=== PATIENT | female | born 2000 | race Caucasian/White ===

== ENCOUNTER 2018-08-28 18:16 | Emergency (ER) | payer OTHER ==
[2018-08-28] MEDS ORDERED: LIDOCAINE 2% VISCOUS SOLN 20 ML UDCUP PO ONE (19:22)
[2018-08-28] MEDS ORDERED: MAG HYDROX/AL HYDROX/SIMETH SUSP 30 ML UDCUP PO ONE (19:22)
[2018-08-28] MEDS ORDERED: METOCLOPRAMIDE HCL ORAL SOLN 10 MG/10 ML UDCUP PO ONE (19:22)
--- NOTE | 2018-08-28 19:27 | ER Document Report ---
ED Medical Screen (RME) - General Chief Complaint: Chest Pain Stated Complaint: CHEST PAIN Time Seen by Provider: 08/28/18 19:18 Mode of Arrival: Ambulatory Information source: Patient Notes: 18-year-old female presented to ED for complaint of upper chest pain since last night. She states she is never had pain like this in the past. She is 22 weeks 1 para 0. She does have a history of GERD and asthma. Patient is alert and oriented respirations regular and unlabored speaking in full sentences walks with even steady gait. I have greeted and performed a rapid initial assessment of this patient. A comprehensive ED assessment and evaluation of the patient, analysis of test results and completion of medical decision making process will be conducted by an additional ED providers. Dictation of this chart was performed using voice recognition software; therefore, there may be some unintended grammatical errors. TRAVEL OUTSIDE OF THE [place] IN LAST 30 DAYS: No - Related Data Allergies/Adverse Reactions: bee sting Allergy (Uncoded 08/28/18 18:48) Physical Exam - Vital signs Vitals: Temp Pulse Resp BP Pulse Ox 98.2 F 79 18 135/62 H 100 08/28/18 18:56 08/28/18 18:56 08/28/18 18:56 08/28/18 18:56 08/28/18 18:56 Course - Vital Signs Vital signs: Temp Pulse Resp BP Pulse Ox 98.2 F 79 18 135/62 H 100 08/28/18 18:56 08/28/18 18:56 08/28/18 18:56 08/28/18 18:56 08/28/18 18:56
--- NOTE | 2018-08-28 20:00 | EKG REPORT ---
SEVERITY:- BORDERLINE ECG - SINUS RHYTHM BORDERLINE T ABNORMALITIES, ANTERIOR LEADS : Confirmed by: Kandice Marcos MD 28-Aug-2018 19:59:59
[2018-08-28 20:14] LABS: APPEARANCE,URINE CLOUDY; BILIRUBIN,URINE NEGATIVE (NEGATIVE); COLOR,URINE YELLOW; GLUCOSE, URINE NEGATIVE (NEGATIVE); KETONES,URINE NEGATIVE (NEGATIVE); LEUKOCYTE ESTERASE,URINE SMALL (NEGATIVE); NITRITE,URINE POSITIVE (NEGATIVE); PROTEIN,URINE NEGATIVE (NEGATIVE); URINE SPECIFIC GRAVITY 1.011
--- NOTE | 2018-08-28 20:34 | RADIOLOGY REPORT (SQ) ---
EXAM DESCRIPTION: XR CHEST 2 VIEWS COMPLETED DATE/TME: 08/28/2018 19:22 CLINICAL HISTORY: 18 years Female chest pain COMPARISON: None. FINDINGS: The cardiomediastinal silhouette appears unremarkable. No consolidating infiltrates or pleural effusions. No pneumothorax. IMPRESSION: No acute abnormality is identified.
[2018-08-28 21:02] LABS: ABSOLUTE EOSINOPHILS # (AUTO) 0.1 10^3/uL (0.0-0.6); ABSOLUTE LYMPHOCYTES (AUTO) 2.2 10^3/uL (0.5-4.7); ABSOLUTE MONOCYTES (AUTO) 0.8 10^3/uL (0.1-1.4); ABSOLUTE NEUT (AUTO) 8.6 10^3/uL (1.7-8.2); BASOPHILS % (AUTO) 0.3 % (0-2); EOSINOPHILS % (AUTO) 1.1 % (0-6); HEMATOCRIT 33.8 % (36.0-47.0); HEMOGLOBIN 11.2 g/dL (12.0-15.5); LYMPHOCYTES % (AUTO) 19.1 % (13-45); MEAN CORPUSCULAR HEMOGLOBIN 29.4 pg (27.0-33.4); MEAN CORPUSCULAR VOLUME 89 fl (80-97); MONOCYTES % (AUTO) 6.6 % (3-13); PLATELET COUNT 246 10^3/uL (150-450); RED BLOOD COUNT 3.79 10^6/uL (3.72-5.28); SEGMENTED NEUTROPHILS % (AUTO) 72.9 % (42-78); TOTAL CELLS COUNTED % (AUTO) 100 %; WHITE BLOOD COUNT 11.7 10^3/uL (4.0-10.5)
[2018-08-28 21:19] LABS: ALANINE AMINOTRANSFERASE 25 U/L (9-52); ALBUMIN 4.2 g/dL (3.5-5.0); ALKALINE PHOSPHATASE 58 U/L (38-126); ANION GAP 8 (5-19); ASPARTATE AMINO TRANSFERASE 26 U/L (14-36); BILIRUBIN,DIRECT 0.2 mg/dL (0.0-0.4); BILIRUBIN,TOTAL 0.3 mg/dL (0.2-1.3); BLOOD UREA NITROGEN 7 mg/dL (7-20); CALCIUM 9.9 mg/dL (8.4-10.2); CARBON DIOXIDE 26 mmol/L (22-30); CHLORIDE 104 mmol/L (98-107); LIPASE 48.9 U/L (23-300); POTASSIUM 4.5 mmol/L (3.6-5.0); SODIUM 137.8 mmol/L (137-145); TOTAL PROTEIN 7.1 g/dL (6.3-8.2)
[2018-08-28 21:34] LABS: GLUCOSE 61 mg/dL (75-110)
[2018-08-28 21:36] LABS: CREATINE KINASE MB < 0.22 ng/mL (<4.55); TROPONIN I < 0.012 ng/mL
--- NOTE | 2018-08-28 22:24 | ER Document Report ---
ED General - General Chief Complaint: Chest Pain Stated Complaint: CHEST PAIN Time Seen by Provider: 08/28/18 19:18 Mode of Arrival: Ambulatory Notes: 18-year-old female to emergency department chief complaint of chest pain. Patient is 22 weeks . Began having chest pain earlier today. Hurts when she takes a deep breath. Nothing seems to make it better. No significant shortness of breath chest pain with deep inspiration. Denies any fever, chills, sweats. No leg swelling. No prior history of DVT or PE. No other major issues at this time. TRAVEL OUTSIDE OF THE [place] IN LAST 30 DAYS: No - HPI Onset: Just prior to arrival Onset/Duration: Sudden Quality of pain: Sharp Severity: Moderate Pain Level: 3 Exacerbated by: Deep breathing - Related Data Allergies/Adverse Reactions: bee sting Allergy (Uncoded 08/28/18 18:48) Past Medical History - General Information source: Patient - Social History Smoking Status: Never Smoker Chew tobacco use (# tins/day): No Frequency of alcohol use: None Drug Abuse: None Family History: Reviewed & Not Pertinent Patient has suicidal ideation: No Patient has homicidal ideation: No - Medical History Medical History: Negative - Past Medical History Cardiac Medical History: Reports: None Renal/ Medical History: Denies: Hx Peritoneal Dialysis GI Medical History: Reports: Hx Gastroesophageal Reflux Disease Past Surgical History: Reports: Hx Oral Surgery - wisdom teeth Review of Systems - Review of Systems Notes: Constitutional: denies: Chills, Diaphoresis, Fever, Malaise, Weakness EENT: denies: Eye discharge, Blurred vision, Tearing, Double vision, Nose congestion, Nose discharge, Throat swelling, Mouth pain Cardiovascular: denies: Palpitations, Heart racing, Orthopnea, Dyspnea,+ Chest pain Respiratory: denies: Cough, Hurts to breathe, Wheezing, Shortness of breath Gastrointestinal: denies: Abdominal pain, Diarrhea, Nausea, Vomiting, Black stools, bright red blood in stool Genitourinary: denies: Burning, Dysuria, Discharge, Frequency, Flank pain, Hematuria Musculoskeletal: denies: Joint pain, Joint swelling, Muscle pain, Muscle st iffness, back pain Hematologic/Lymphatic: denies: Anemia, Easy bleeding, Easy bruising, Blood clot s Neurological/Psychological: denies: Confusion, Dementia, Depression, Loss of consciousness Skin: No lesions, no masses, no skin breakdown, no abscesses Physical Exam - Vital signs Vitals: Temp Pulse Resp BP Pulse Ox 98.2 F 79 18 135/62 H 100 08/28/18 18:56 08/28/18 18:56 08/28/18 18:56 08/28/18 18:56 08/28/18 18:56 Interpretation: Normal - General General appearance: Appears well, Alert - HEENT Head: Normocephalic, Atraumatic Eyes: Normal Pupils: PERRL - Respiratory Respiratory status: No respiratory distress Chest status: Nontender Breath sounds: Normal Chest palpation: Normal - Cardiovascular Rhythm: Regular Heart sounds: Normal auscultation Murmur: No Notes: Mild reproducible chest wall pain with deep palpation of the ribs meet the sternum on the left. - Abdominal Inspection: Normal Distension: No distension Bowel sounds: Normal Tenderness: Nontender Organomegaly: No organomegaly Notes: 22-week gravid uterus - Back Back: Normal, Nontender - Extremities General upper extremity: Normal inspection, Nontender, Normal color, Normal ROM, Normal temperature General lower extremity: Normal inspection, Nontender, Normal color, Normal ROM, Normal temperature, Normal weight bearing. No: Tess's sign - Neurological Neuro grossly intact: Yes Cognition: Normal Orientation: AAOx4 [place] Coma Scale Eye Opening: Spontaneous [place] Coma Scale Verbal: Oriented [place] Coma Scale Motor: Obeys Commands [place] Coma Scale Total: 15 Speech: Normal Motor strength normal: LUE, RUE, LLE, RLE Sensory: Normal - Psychological Associated symptoms: Normal affect, Normal mood - Skin Skin Temperature: Warm Skin Moisture: Dry Skin Color: Normal Course - Re-evaluation Re-evalutation: 08/28/18 22:41 This is a well-appearing 18-year-old female in no acute distress. 22 weeks . Has pain on the left side of her chest where the ribs meet the sternum with deep inspiration. This has resolved. She does not have any significant swelling of the bilateral lower extremities. No prior history of DVT or PE. Her heart rate is normal. Oxygen saturations are 98%. At this time she has an incidental UTI which we will treat. At this time feel comfortable discharging in stable condition. Laboratory 08/28/18 08/28/18 08/28/18 19:45 20:17 20:17 WBC 11.7 H RBC 3.79 Hgb 11.2 L Hct 33.8 L MCV 89 MCH 29.4 MCHC 33.0 RDW 14.0 Plt Count 246 Seg Neutrophils % 72.9 Lymphocytes % 19.1 Monocytes % 6.6 Eosinophils % 1.1 Basophils % 0.3 Absolute Neutrophils 8.6 H Absolute Lymphocytes 2.2 Absolute Monocytes 0.8 Absolute Eosinophils 0.1 Absolute Basophils 0.0 Sodium 137.8 Potassium 4.5 Chloride 104 Carbon Dioxide 26 Anion Gap 8 BUN 7 Creatinine 0.45 L Est GFR ( Amer) > 60 Est GFR (Non-Af Amer) > 60 Glucose 61 L Calcium 9.9 Total Bilirubin 0.3 Direct Bilirubin 0.2 Neonat Total Bilirubin Not Reportable Neonat Direct Bilirubin Not Reportable Neonat Indirect Bili Not Reportable AST 26 ALT 25 Alkaline Phosphatase 58 CK-MB (CK-2) Troponin I Total Protein 7.1 Albumin 4.2 Lipase 48.9 Serum HCG, Qual Urine Color YELLOW Urine Appearance CLOUDY Urine pH 7.0 Ur Specific [place] 1.011 Urine Protein NEGATIVE Urine Glucose (UA) NEGATIVE Urine Ketones NEGATIVE Urine Blood NEGATIVE Urine Nitrite POSITIVE H Urine Bilirubin NEGATIVE Urine Urobilinogen 2.0 H Ur Leukocyte Esterase SMALL H Urine WBC (Auto) 3 Urine RBC (Auto) 1 Urine Bacteria (Auto) 1+ Squamous Epi Cells Auto 6 Urine Mucus (Auto) RARE Urine Ascorbic Acid NEGATIVE 08/28/18 08/28/18 20:17 20:17 WBC RBC Hgb Hct MCV MCH MCHC RDW Plt Count Seg Neutrophils % Lymphocytes % Monocytes % Eosinophils % Basophils % Absolute Neutrophils Absolute Lymphocytes Absolute Monocytes Absolute Eosinophils Absolute Basophils Sodium Potassium Chloride Carbon Dioxide Anion Gap BUN Creatinine Est GFR ( Amer) Est GFR (Non-Af Amer) Glucose Calcium Total Bilirubin Direct Bilirubin Neonat Total Bilirubin Neonat Direct Bilirubin Neonat Indirect Bili AST ALT Alkaline Phosphatase CK-MB (CK-2) < 0.22 Troponin I < 0.012 Total Protein Albumin Lipase Serum HCG, Qual POSITIVE H Urine Color Urine Appearance Urine pH Ur Specific [place] Urine Protein Urine Glucose (UA) Urine Ketones Urine Blood Urine Nitrite Urine Bilirubin Urine Urobilinogen Ur Leukocyte Esterase Urine WBC (Auto) Urine RBC (Auto) Urine Bacteria (Auto) Squamous Epi Cells Auto Urine Mucus (Auto) Urine Ascorbic Acid Chest X-Ray 08/28/18 19:22 IMPRESSION: No acute abnormality is identified. - Vital Signs Vital signs: Temp Pulse Resp BP Pulse Ox 98.3 F 81 20 128/66 H 100 08/28/18 23:00 08/28/18 23:00 08/28/18 23:00 08/28/18 23:00 08/28/18 23:00 - Laboratory Result Diagrams: 08/28/18 20:17 08/28/18 20:17 Laboratory results interpreted by me: 08/28/18 08/28/18 08/28/18 19:45 20:17 20:17 WBC 11.7 H Hgb 11.2 L Hct 33.8 L Absolute Neutrophils 8.6 H Creatinine 0.45 L Glucose 61 L Serum HCG, Qual Urine Nitrite POSITIVE H Urine Urobilinogen 2.0 H Ur Leukocyte Esterase SMALL H 08/28/18 20:17 WBC Hgb Hct Absolute Neutrophils Creatinine Glucose Serum HCG, Qual POSITIVE H Urine Nitrite Urine Urobilinogen Ur Leukocyte Esterase - EKG Interpretation by Me EKG shows normal: Sinus rhythm, [place], Intervals, QRS Complexes, ST-T Waves Discharge - Discharge Clinical Impression: Chest pain Qualifiers: Chest pain type: chest pain on breathing Qualified Code(s): R07.1 - Chest pain on breathing Urinary tract infection Qualifiers: Urinary tract infection type: site unspecified Hematuria presence: without hematuria Qualified Code(s): N39.0 - Urinary tract infection, site not specified Condition: Good Disposition: HOME, SELF-CARE Instructions: Chest Wall Pain ([facility]), Urinary Tract Infection ([facility]) Additional Instructions: In the event you develop significant shortness of breath with chest pain, elevated heart rate, swelling of your legs or any other concerns please return immediately. Even though you are not having symptoms of a urinary tract infection your urine shows evidence of infection. Because you are we do recommend treatment. Please make an appointment with your [facility] as soon as possible for repeat evaluation. Prescriptions: Albuterol Sulfate [Proair HFA Inhalation Aerosol 8.5 gm MDI] 2 puff IH Q4H PRN 10 Days #1 mdi PRN Reason: Nitrofurantoin/Nitrofuran Mac [Macrobid 100 mg Capsule] 1 tab PO BID 10 Days #20 capsule
[2018-08-28 23:01] VITALS: BP 128/66
== END 2018-08-28 22:57 | disposition home or self-care (01) ==
LOC: ER 18:16
DX: O26.892 Other specified pregnancy related conditions, second trimester (principal); R07.1 Chest pain on breathing; O23.42 Unspecified infection of urinary tract in pregnancy, second trimester; Z3A.22 22 weeks gestation of pregnancy; Z91.030 Bee allergy status
CPT/HCPCS: 93005; 99285; 36415; 82553; 83690; 84703; 85025; 80053; 81001; 84484; 71046; 93010; J3490